=== PATIENT | female | born 1940 | race Caucasian/White ===

== ENCOUNTER 2018-02-12 09:25 | Emergency (ER) | payer MEDICARE ==
[2018-02-12] MEDS ORDERED: DIAZEPAM 2 MG TAB ONE (09:43)
[2018-02-12] MEDS ORDERED: KETOROLAC TROMETHAMINE 30MG/ML ONE (09:43)
== END 2018-02-12 10:52 | disposition home or self-care (01) ==
LOC: EDH 09:25
DX: M25.552 Pain in left hip (principal); J32.9 Chronic sinusitis, unspecified; I10 Essential (primary) hypertension; E78.5 Hyperlipidemia, unspecified
CPT/HCPCS: 73502; 96372; 99284; J1885